=== PATIENT | female | born 1950 | race Caucasian/White ===

== ENCOUNTER 2022-03-27 05:39 | Inpatient (IN) | payer MEDICARE, SELFPAY ==
[2022-03-27] VITALS (11 sets, daily range): BP systolic 100–180; BP diastolic 51–100; PULSE 56–79; RESP 12–18; TEMP 33.7–37; O2SAT 89–98; BMI 40.3
--- NOTE | ~2022-03-27 | XR_ITS ---
EXAMINATION: XR CHEST CLINICAL INFORMATION: Chest pain COMPARISON: None TECHNIQUE: Frontal view of the chest was obtained. FINDINGS: Lungs are hypoinflated and suboptimally evaluated on this single AP view of the chest. Further evaluation with PA and lateral views could be helpful. Although there appears to be elevation the right diaphragm, this more likely represents a subpulmonic pleural effusion. The right lower lobe is not well evaluated on this radiograph. Cardiac silhouette is normal in size. The hilar contours are normal. The trachea is midline in position. The visualized bones are intact. Multilevel osteophyte formation of the spine. 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 XR/XR chest 1V IMPRESSION: Moderate subpulmonic right-sided pleural effusion. There is likely atelectasis, less likely airspace disease, in the suboptimally evaluated right lower lobe.
--- NOTE | ~2022-03-27 | CT_ITS ---
EXAMINATION: CT ANGIOGRAM OF THE CHEST WITH CONTRAST (CT PULMONARY ANGIOGRAM FOR PE) CLINICAL INFORMATION: Shortness of breath and weakness. COMPARISON: CXR from 03/27/2022. TECHNIQUE: Prior to contrast administration, noncontrast localization images were obtained. Subsequently, multidetector volumetric imaging was performed from the thoracic inlet to below the diaphragms following the administration of 65 mL Omnipaque 350 intravenous contrast. No contrast reaction reported. Sagittal, coronal, and MIP oblique sagittal reformatted images were obtained on the CT workstation, uploaded to PACS, and reviewed. This CT examination was performed using dose optimization techniques as appropriate, variously including the following: *Automated exposure control *Adjustment of mA and/or kV according to patient size (this includes techniques or standardized protocols for targeted exams where dose is matched to indication/reason for exam; i.e. extremities or head) *Use of iterative reconstruction technique DLP: Total exam dose-length product 474 mGy-cm FINDINGS: LUNGS AND PLEURA: The bronchial pierre and/or peribronchial interstitium are diffusely thickened, and lungs have mosaic attenuation, which suggests presence of air trapping phenomenon. There are ill-defined small airspace and/or small nodular opacities in both lungs which could be secondary to mild infectious or inflammatory process. A small, 0.2 cm calcified granuloma is present in the anterior left upper lobe (image 143, series 7). No lung mass. No suspicious nodule. Istykptm-iq-xvegg right pleural effusion layers from the base to the apex. The right lower lobe is partially compressed by the pleural effusion. There appears to be passive atelectasis in the right lower lobe. A small left pleural effusion is present. No pneumothorax. QUALITY OF STUDY/CONTRAST BOLUS: Satisfactory. CARDIOVASCULAR: Pulmonary arteries are normal in size. No embolic filling defects in the main, lobar or segmental vessels. There is mild cardiomegaly with mild enlargement of left and right atrial chambers. Mitral valve annulus is calcified. No pericardial effusion. Mild atherosclerosis of the thoracic aorta without aneurysm or dissection. MEDIASTINUM/LOWER NECK: No mediastinal mass. The esophagus and thyroid gland are unremarkable. LYMPHATICS: No pathologic sized axillary, hilar or mediastinal lymph nodes. UPPER ABDOMEN: There is reflux of contrast into the IVC and central hepatic veins which suggests presence of elevated right-sided cardiac pressures. OSSEOUS STRUCTURES: Multilevel discovertebral degenerative change of the visualized spine. No aggressive osseous lesions. CT/CT angio chest PE protocol IMPRESSION: * No evidence of pulmonary embolism. * Mild cardiomegaly, mosaic attenuation the lungs, peribronchial interstitial thickening and bilateral pleural effusions (right larger than left). These findings are consistent with fluid overload/congestive heart failure. The finding of contrast reflux into the IVC and hepatic veins suggests presence of elevated right-sided cardiac pressures. Difficult to exclude any superimposed infectious or inflammatory process in the lungs.
--- NOTE | ~2022-03-27 | CT_ITS ---
EXAMINATION: HEAD CT WITHOUT CONTRAST CERVICAL SPINE CT WITHOUT CONTRAST CLINICAL INFORMATION: Pain, status posttrauma COMPARISON: None. TECHNIQUE: Contiguous axial imaging of the head was performed without the administration of IV contrast. Axial multidetector volumetric images were also performed through the cervical spine without contrast. Multiplanar reconstructed images in coronal and sagittal orientations were submitted. DOSE: 1290 mGy-cm FINDINGS: HEAD: There is motion and streak artifact limiting evaluation of the inferior supratentorial region and the posterior fossa. Scattered areas of subcortical increased signal in the supratentorial region, suspected to be artifactual. Otherwise, there is no evidence of acute intracranial hemorrhage or territorial infarction. No abnormal mass-effect or midline shift. No extra-axial fluid collections. Walker to white matter differentiation is well preserved. The ventricles are normal in size and configuration. . No acute calvarial fracture. The sinuses and mastoid air cells are clear. CERVICAL SPINE: Craniocervical and atlantoaxial articulations are maintained. There is mild anterolisthesis of C3 on C4, C4 on C5. There is straightening of the cervical curvature. Vertebral body heights are maintained. No acute fractures seen. Cervical spondylosis present. This includes severe disc degeneration at C5-C6, C6-C7, C7-T1. This includes a prominent osteophytes arising from the posterior aspect of C5-C6, extending into the central canal with associated central canal stenosis. No significant prevertebral soft tissue swelling. No suspicious thyroid findings. No adenopathy is identified. There is a prominent effusion in the visualized right upper lung. Mild nonspecific groundglass opacities in bilateral upper lungs. CT/CT cervical spine wo con IMPRESSION: CT HEAD: Motion artifact, streak artifact and artifactual signal in the subcortical region of the brain, limiting evaluation, as described above. No acute intracranial hemorrhage is identified. Given the limitations of study, a follow-up CT for reassessment can be considered as clinically warranted. No evidence of edematous territorial infarction. CT cervical spine: 1.No acute fracture or malalignment in the cervical spine. 2. Severe cervical spondylosis. Prominent posterior osteophytes at C5-C6, causing central canal stenosis. 3. Prominent effusion in the visualized right upper lung.
--- NOTE | ~2022-03-27 | XR_ITS ---
EXAMINATION: XR CHEST CLINICAL INFORMATION: Follow-up right pleural effusion. COMPARISON: 03/27/2022 chest radiographs. TECHNIQUE: Frontal view of the chest was obtained. FINDINGS: Small to moderate right pleural effusion appears minimally increased. The right upper lung field and left lung are clear. The heart and mediastinal structures are unremarkable. XR/XR chest 1V IMPRESSION: Small to moderate pleural effusions appears minimally increased.
--- NOTE | 2022-03-27 06:10 | PC.NURSE ---
Bear warmer placed on Pt with rectal temp of 92.6.
[2022-03-27 06:14] LABS: Glucose, Whole Blood 94 mg/dL (60-115)
--- NOTE | 2022-03-27 06:17 | PC.NURSE ---
pt noted to have rectal temperature of 92.7, RN aware, luiz cohen placed. patient changed into hospital attire and placed on laboratory monitor
--- NOTE | 2022-03-27 06:28 | PC.NURSE ---
while changing patient into hospital attire, patient noted to be grossly incontinent of stool and urine, underwear cut off and thrown out at this time, ok per patient. incontinence care performed on patient. all safety maintained.
--- NOTE | 2022-03-27 07:22 | ECG_ITS ---
Test Reason : SEPSIS Blood Pressure : / mmHG Vent. Rate : 060 BPM Atrial Rate : 000 BPM P-R Int : 000 ms QRS Dur : 090 ms QT Int : 428 ms P-R-T Axes : 000 065 123 degrees QTc Int : 428 ms Sinus with first degree AV block and ?Mobitz 2 block (5th beat Septal infarct , age undetermined Abnormal ECG No previous ECGs available Referred By: Kaitlin Lynn Electronically Signed By:Douglas Vogt
[2022-03-27 07:43] LABS: MANUAL DIFF FLAG NO
--- NOTE | 2022-03-27 07:45 | ED.GENADULT ---
HPI - General Adult General Chief complaint: General Medical Stated complaint: fall Time Seen by Provider: 03/27/22 07:22 History of Present Illness HPI narrative: Patient is a 71-year-old female brought in by Fire Department patient lives alone. Fell in the bathroom hit her head. Question loss of consciousness. Patient did not call for help until 11 hours later. Friends reported patient has not been taking her medications. Patient canceled her doctor's appointment. EMS reported patient's house extremely cluttered. Patient complaining of diffuse aches. She is immunized for COVID she has a minimal cough. She denies any abdominal pain. No diarrhea. No nausea no vomiting. Positive generalized malaise. No focal weakness. Related Data Allergies Allergy/AdvReac Type Severity Reaction Status Date / Time Kayexalate Allergy Unknown Uncoded 02/08/19 00:00 Review of Systems Review of Systems: Positive generalized malaise. Yes all other systems are reviewed and are negative PMF Past Medical History Attestation statement: The following information was validated with the patient. Social History Social History Advance Directives: No Advance Directives Information Provided: Yes Physical Exam ED Vital Signs: Vital Signs - 24 hr 03/27/22 05:47 03/27/22 05:48 03/27/22 07:19 Temperature 92.7 F L 92.7 F L Pulse Rate 74 65 56 Respiratory Rate 15 18 12 Blood Pressure 154/56 H 154/56 H 126/51 L Pulse Oximetry 95 97 93 03/27/22 08:06 03/27/22 08:26 03/27/22 09:07 Temperature 94.3 F L 94.8 F L 95.5 F L Pulse Rate 61 61 61 Respiratory Rate 13 14 14 Blood Pressure 108/55 L 104/62 100/61 Pulse Oximetry 89 L 98 97 03/27/22 09:54 03/27/22 12:40 Temperature 96.1 F L 96.6 F L Pulse Rate 63 70 Respiratory Rate 14 14 Blood Pressure 116/61 Pulse Oximetry 97 93 BMI result Body Mass Index 40.3 Appearance: Alert. Oriented X3. No acute distress. Eyes: Pupils equal, round and reactive to light. ENT: Pharynx normal. Mucous membranes dry Neck: Normal inspection. Neck supple. No lymph nodes noted. No crepitus CVS: Normal heart rate and rhythm. Pulses normal. Normal S1 and S2 Respiratory: No respiratory distress. Breath sounds normal. No Wheezing. No rales Abdomen: Soft and nontender. No rigidity. No distention. good BS x4 Skin: Bilateral lower extremity edema 2+. Not warm to touch slightly red blanches distal pulses intact. Extremities: Positive bilateral lower extremity edema. Neurovascular intact to all extremities. No Lacerations. Positive redness noted in the bilateral lower extremity not warm to touch., blanches Neuro: Oriented X 3. No motor deficit. No sensory deficit. Moving all extermities. No slurred speech Medical Decision Making MDM Narrative Medical decision making narrative: Positive generalized malaise positive decrease in temperature question etiology. Patient initial temperature was [address] scan of the head was negative CT scan of the C-spine showed no acute fracture. Patient's TSH was normal. White count is normal. Electrolytes were unremarkable. The CPK was negative for acute evidence of rhabdo. Patient's urine showed no signs of infection. COVID swab was negative flu RSV were negative. Patient given warm fluids [facility] temperature came up nicely to 97 degrees. Chest x-ray showed a questionable infiltrate. Patient's O2 sats 90%. A CTA was done to rule out the possibility of PE/pneumonia. Most likely it is an infiltrate there patient was already on antibiotic. Patient was started on Rocephin initially. Will add azithromycin. Awaiting final reading from the CTA. Patient's case discussed with the hospitalist team nevertheless patient will require admission for further evaluation treatment for pneumonia. No evidence for severe sepsis patient is in stable condition. Lab Data Result diagrams: 03/27/22 07:39 03/27/22 07:38 Labs: Lab Results 03/27/22 03/27/22 03/27/22 Range/Units 06:10 07:23 07:38 WBC (4.8-10.8) X10*3/uL RBC (4.20-5.50) X10*6/uL Hgb (12.0-16.0) g/dl Hct (37.0-47.0) % MCV (80.0-98.0) fL MCH (27.0-33.0) pg MCHC (31.0-35.0) g/dl RDW (11.0-16.0) % Plt Count (160-400) X10*3/uL MPV (9.4-12.3) fL Immature Gran % (Auto) (0.0-0.4) % Neut % (Auto) (45-73) % Lymph % (Auto) (20-40) % [place] % (Auto) (2-11) % Eos % (Auto) (0-4) % Baso % (Auto) (0-2) % Lymph # (Auto) (1.2-4.9) X10*3/uL [place] # (Auto) (0.1-1.2) X10*3/uL Eos # (Auto) (0.0-0.4) X10*3/uL Baso # (Auto) (0.0-0.2) X10*3/uL Abs Immat Gran (auto) (0.00-0.03) X10*3/uL Absolute Neuts (auto) (2.0-8.3) x10*3/uL Absolute Nucleated RBC (0.0-0.012) X10*3/uL Nucleated RBC % (auto) (0.0-0.2) /100WBC Sodium 143 (135-145) mmol/L Potassium 3.6 (3.3-5.1) mmol/L Chloride 107 (96-108) mmol/L Carbon Dioxide 22 (22-29) mmol/L Anion Gap 18 (12-20) BUN 20 H (9-16) mg/dL Creatinine 0.98 (0.5-1.4) mg/dL Estim Creat Clear Calc 69.7 Estimated GFR 56 POC Glucose 94 (60-115) mg/dL Random Glucose 116 H (60-115) mg/dL Lactic Acid (0.5-2.0) mmol/L Calcium 9.6 (8.4-10.2) mg/dL Magnesium 2.0 (1.6-2.6) mg/dL Total Bilirubin 2.3 H (0.0-1.0) mg/dL Direct Bilirubin 1.5 H (0.0-0.5) mg/dL AST 21 (5-31) U/L ALT 13 (0-31) U/L Alkaline Phosphatase 107 (39-117) U/L Total Creatine Kinase 121 (26-140) U/L Troponin I High Sens 8.4 (<3.5-17.0) ng/L Total Protein 6.0 L (6.5-8.0) g/dL Albumin 3.3 L (3.5-5.0) g/dL TSH 2.68 (0.32-4.0) uIU/mL Urine Color Urine Appearance Urine pH (5.0-8.0) Ur Specific [place] (1.005-1.025) Urine Protein (NEG-TRACE) MG/DL Urine Glucose (UA) (NEG) MG/DL Urine Ketones (NEG) MG/DL Urine Blood (NEG) Urine Nitrite (NEG) Ur Leukocyte Esterase (NEG) Urine RBC (0) /HPF Urine WBC (0-4) /HPF Ur Squamous Epith Cells /LPF Urine Bacteria /LPF Hyaline Casts /LPF Granular Casts /LPF Influenza Type A (PCR) (Negative) Influenza Type B (PCR) (Negative) RSV RNA Qual (PCR) (Negative) SARS-CoV-2 RNA (RT-PCR) (Negative) 03/27/22 03/27/22 03/27/22 Range/Units 07:38 07:38 07:39 WBC 5.7 (4.8-10.8) X10*3/uL RBC 4.32 (4.20-5.50) X10*6/uL Hgb 12.0 (12.0-16.0) g/dl Hct 38.6 (37.0-47.0) % MCV 89.4 (80.0-98.0) fL MCH 27.8 (27.0-33.0) pg MCHC 31.1 (31.0-35.0) g/dl RDW 18.0 H (11.0-16.0) % Plt Count 196 (160-400) X10*3/uL MPV 9.7 (9.4-12.3) fL Immature Gran % (Auto) 0.4 (0.0-0.4) % Neut % (Auto) 77.9 H (45-73) % Lymph % (Auto) 10.4 L (20-40) % [place] % (Auto) 9.7 (2-11) % Eos % (Auto) 1.2 (0-4) % Baso % (Auto) 0.4 (0-2) % Lymph # (Auto) 0.6 L (1.2-4.9) X10*3/uL [place] # (Auto) 0.6 (0.1-1.2) X10*3/uL Eos # (Auto) 0.1 (0.0-0.4) X10*3/uL Baso # (Auto) 0.0 (0.0-0.2) X10*3/uL Abs Immat Gran (auto) 0.02 (0.00-0.03) X10*3/uL Absolute Neuts (auto) 4.4 (2.0-8.3) x10*3/uL Absolute Nucleated RBC 0.000 (0.0-0.012) X10*3/uL Nucleated RBC % (auto) 0.0 (0.0-0.2) /100WBC Sodium (135-145) mmol/L Potassium (3.3-5.1) mmol/L Chloride (96-108) mmol/L Carbon Dioxide (22-29) mmol/L Anion Gap (12-20) BUN (9-16) mg/dL Creatinine (0.5-1.4) mg/dL Estim Creat Clear Calc Estimated GFR POC Glucose (60-115) mg/dL Random Glucose (60-115) mg/dL Lactic Acid 1.4 (0.5-2.0) mmol/L Calcium (8.4-10.2) mg/dL Magnesium (1.6-2.6) mg/dL Total Bilirubin (0.0-1.0) mg/dL Direct Bilirubin (0.0-0.5) mg/dL AST (5-31) U/L ALT (0-31) U/L Alkaline Phosphatase (39-117) U/L Total Creatine Kinase (26-140) U/L Troponin I High Sens (<3.5-17.0) ng/L Total Protein (6.5-8.0) g/dL Albumin (3.5-5.0) g/dL TSH (0.32-4.0) uIU/mL Urine Color Urine Appearance Urine pH (5.0-8.0) Ur Specific [place] (1.005-1.025) Urine Protein (NEG-TRACE) MG/DL Urine Glucose (UA) (NEG) MG/DL Urine Ketones (NEG) MG/DL Urine Blood (NEG) Urine Nitrite (NEG) Ur Leukocyte Esterase (NEG) Urine RBC (0) /HPF Urine WBC (0-4) /HPF Ur Squamous Epith Cells /LPF Urine Bacteria /LPF Hyaline Casts /LPF Granular Casts /LPF Influenza Type A (PCR) NEGATIVE (Negative) Influenza Type B (PCR) NEGATIVE (Negative) RSV RNA Qual (PCR) NEGATIVE (Negative) SARS-CoV-2 RNA (RT-PCR) NEGATIVE (Negative) 03/27/22 Range/Units 07:49 WBC (4.8-10.8) X10*3/uL RBC (4.20-5.50) X10*6/uL Hgb (12.0-16.0) g/dl Hct (37.0-47.0) % MCV (80.0-98.0) fL MCH (27.0-33.0) pg MCHC (31.0-35.0) g/dl RDW (11.0-16.0) % Plt Count (160-400) X10*3/uL MPV (9.4-12.3) fL Immature Gran % (Auto) (0.0-0.4) % Neut % (Auto) (45-73) % Lymph % (Auto) (20-40) % [place] % (Auto) (2-11) % Eos % (Auto) (0-4) % Baso % (Auto) (0-2) % Lymph # (Auto) (1.2-4.9) X10*3/uL [place] # (Auto) (0.1-1.2) X10*3/uL Eos # (Auto) (0.0-0.4) X10*3/uL Baso # (Auto) (0.0-0.2) X10*3/uL Abs Immat Gran (auto) (0.00-0.03) X10*3/uL Absolute Neuts (auto) (2.0-8.3) x10*3/uL Absolute Nucleated RBC (0.0-0.012) X10*3/uL Nucleated RBC % (auto) (0.0-0.2) /100WBC Sodium (135-145) mmol/L Potassium (3.3-5.1) mmol/L Chloride (96-108) mmol/L Carbon Dioxide (22-29) mmol/L Anion Gap (12-20) BUN (9-16) mg/dL Creatinine (0.5-1.4) mg/dL Estim Creat Clear Calc Estimated GFR POC Glucose (60-115) mg/dL Random Glucose (60-115) mg/dL Lactic Acid (0.5-2.0) mmol/L Calcium (8.4-10.2) mg/dL Magnesium (1.6-2.6) mg/dL Total Bilirubin (0.0-1.0) mg/dL Direct Bilirubin (0.0-0.5) mg/dL AST (5-31) U/L ALT (0-31) U/L Alkaline Phosphatase (39-117) U/L Total Creatine Kinase (26-140) U/L Troponin I High Sens (<3.5-17.0) ng/L Total Protein (6.5-8.0) g/dL Albumin (3.5-5.0) g/dL TSH (0.32-4.0) uIU/mL Urine Color YELLOW Urine Appearance CLEAR Urine pH 5.5 (5.0-8.0) Ur Specific [place] >= 1.030 H (1.005-1.025) Urine Protein 1+ H (NEG-TRACE) MG/DL Urine Glucose (UA) NEG (NEG) MG/DL Urine Ketones 15 (NEG) MG/DL Urine Blood NEG (NEG) Urine Nitrite NEG (NEG) Ur Leukocyte Esterase NEG (NEG) Urine RBC 0 (0) /HPF Urine WBC 0 (0-4) /HPF Ur Squamous Epith Cells 1+ /LPF Urine Bacteria NONE /LPF Hyaline Casts 5-9 /LPF Granular Casts 0-2 /LPF Influenza Type A (PCR) (Negative) Influenza Type B (PCR) (Negative) RSV RNA Qual (PCR) (Negative) SARS-CoV-2 RNA (RT-PCR) (Negative) Critical Care Time Critical Care Time Critical Care Time: Yes Total Critical Care Time: 40 Attestation: I have personally provided 40 minutes of critical care time exclusive of time spent on separately billable procedures. Time includes review of lab data, radiology results, discussion with consultants, and monitoring for potential decompensation. Interventions were performed as documented above Discharge Plan Discharge Clinical Impression: Pneumonia Patient Disposition: Admitted As Inpatient
[2022-03-27 07:54] LABS: Basophils Percent Auto 0.4 % (0-2); Eosinophils Absolute Auto 0.1 X10*3/uL (0.0-0.4); Eosinophils Percent Auto 1.2 % (0-4); Hematocrit 38.6 % (37.0-47.0); Imm Gran Abs Auto 0.02 X10*3/uL (0.00-0.03); Imm Gran Pct Auto 0.4 % (0.0-0.4); Lymphocytes Absolute Auto 0.6 X10*3/uL (1.2-4.9); Lymphocytes Percent Auto 10.4 % (20-40); Mean Corpuscular HGB Conc 31.1 g/dl (31.0-35.0); Mean Corpuscular Hemoglobin 27.8 pg (27.0-33.0); Mean Corpuscular Volume 89.4 fL (80.0-98.0); Mean Platelet Volume 9.7 fL (9.4-12.3); Monocytes Absolute Auto 0.6 X10*3/uL (0.1-1.2); Monocytes Percent Auto 9.7 % (2-11); Neutrophils Absolute Auto 4.4 x10*3/uL (2.0-8.3); Neutrophils Percent Auto 77.9 % (45-73); Platelet Count 196 X10*3/uL (160-400); Red Blood Count 4.32 X10*6/uL (4.20-5.50); White Blood Count 5.7 X10*3/uL (4.8-10.8)
[2022-03-27 07:57] LABS: Lactic Acid 1.4 mmol/L (0.5-2.0)
[2022-03-27 07:58] LABS: Appearance Urine CLEAR; Color Urine YELLOW; Glucose Urine UA NEG (NEG); Leukocyte Esterase Urine NEG (NEG); Nitrite Urine NEG (NEG); PH 5.5 (5.0-8.0); Specific Gravity - Urine >= 1.030 (1.005-1.025); UACC Culture Trigger NO; Urine Blood NEG (NEG); Urine Ketones 15 MG/DL (NEG); Urine Protein 1+ MG/DL (NEG-TRACE)
[2022-03-27] MEDS: 0.9 % Sodium Chloride 1,000 ML 999 ML IV (08:02)
--- NOTE | 2022-03-27 08:04 | PC.NURSE ---
pt on bear hugger, warm fluids infusing. placed temp sensing chinchilla cath. VSS at this time aside from temp at 94.3
[2022-03-27 08:09] LABS: Alanine Aminotransferase 13 U/L (0-31); Albumin Level 3.3 g/dL (3.5-5.0); Alkaline Phosphatase 107 U/L (39-117); Anion Gap 18 (12-20); Aspartate Amino Transferase 21 U/L (5-31); Bilirubin Direct 1.5 mg/dL (0.0-0.5); Bilirubin Total 2.3 mg/dL (0.0-1.0); Blood Urea Nitrogen 20 mg/dL (9-16); Calcium 9.6 mg/dL (8.4-10.2); Carbon Dioxide 22 mmol/L (22-29); Chloride 107 mmol/L (96-108); Creatinine Clr Calc Pharmacy 69.7; Estimated Glomerular Filt Rate 56; Glucose Random 116 mg/dL (60-115); Potassium 3.6 mmol/L (3.3-5.1); Sodium 143 mmol/L (135-145)
[2022-03-27 08:11] LABS: RBC Urine 0 /HPF (0); Squamous Epithelial Cell Urine 1+ /LPF; WBC Urine 0 /HPF (0-4)
[2022-03-27 08:12] LABS: Granular Casts Urine 0-2 /LPF
[2022-03-27] MEDS: cefTRIAXone sodium 1 GM in 0.9 % Sodium Chloride 50 ML IV (08:17)
--- NOTE | 2022-03-27 08:17 | PC.NURSE ---
pt SaO2 89% on room air, started pt on 2L NC pt SaO2 up to 98%
[2022-03-27] MEDS: dexAMETHasone sod phosphate 10 MG/ML VIAL IVPUSH (08:18)
[2022-03-27 08:26] LABS: Troponin-I High Sensitivity 8.4 ng/L (<3.5-17.0)
[2022-03-27 08:27] LABS: Influenza A PCR NEGATIVE (Negative); Influenza B PCR NEGATIVE (Negative); Resp Syncy Virus RNA Qual PCR NEGATIVE (Negative); SARS COV2 PCR INHOUSE NEGATIVE (Negative)
[2022-03-27 08:29] LABS: TSH reflex Free T4 2.68 uIU/mL (0.32-4.0)
--- NOTE | 2022-03-27 11:26 | PC.NURSE ---
Addendum entered by More Mccallum RN 03/27/22 11:45: per protective services, pt is not to go home as it is unsafe living conditions. request to keep pt in the hospital until tuesday and work with case management to figure out plan Original Note: [facility] services involved
--- NOTE | 2022-03-27 11:44 | PC.NURSE ---
got pt up to ambulate. pt is slow to change positions, reports weakness and dizziness. pt able to stand at bedside with 2x assist. very unstable. not able to ambulate. notified.
[2022-03-27] MEDS: iohexoL 350 MG/ML 100 ML INFUS..BTL 65 ML IV (12:06)
[2022-03-27] MEDS: Azithromycin 500 MG TABLET PO (12:46)
[2022-03-27 13:53] LABS: Glucose, Whole Blood 105 mg/dL (60-115)
--- NOTE | 2022-03-27 14:09 | PHA.MEDREC ---
Pharmacy Consult ? Medication Reconciliation Pharmacy has completed the medication reconciliation. Patient has a older medication list from last year that is not up to date. Per patient, she has not taken her medication for atleast 3 days, and before that, she had sporadic adherence meaning she was only taking medications once a day. She lost prescription coverage one month ago. Per her refill history, she demonstrates adherence to all medications but the glipizide and zocor. Thanks Zachary
--- NOTE | 2022-03-27 15:36 | PM.EVENT ---
Event Note Date of Service: 03/27/22 Event Note: Patient seen and evaluated. CTA reviewed with no evidence of pulmonary embolism but signs of heart failure. Possible pneumonia. Next Lyme continue treatment with IV antibiotics and Lasix.
--- NOTE | 2022-03-27 15:44 | PM.IMHP ---
History of Present Illness Date of Service: 03/27/22 Chief Complaint: Fall, confused A 71 years old lady with PMH of atrial fibrillation, diabetes, HTN who presents to the hospital after unwitnessed fall at home. The patient cannot remember all the details but she felt dizzy and fell on the floor try to call multiple friends but she felt and they felt that she was little bit of and confused. EMS was called and they brought her to the hospital. She reports that for the last few days she has been feeling sick and not eating very well but the eating problem goes back to earlier this year. She denies any abdominal pain, chest pain, nausea or vomiting or change in bowel habit. She denies any urinary symptoms. In the emergency a CT scan was consistent with fluid overload and possible pneumonia. Admitted for further evaluation and treatment. Review of Systems Review of Systems: No fever, chills but reporting generalized weakness No chest pain, palpitation Having shortness of breath and episodes of cough No abdominal pain, nausea or vomiting No urinary symptoms No any rash or wounds Feels her mind is little bit off [facility] Medical History Atrial fibrillation Diabetes mellitus Social History Advance Directives: No Advance Directives Information Provided: Yes Meds Allergies Allergy/AdvReac Type Severity Reaction Status Date / Time Kayexalate Allergy Unknown Uncoded 02/08/19 00:00 Active Medications: Current Medications Acetaminophen (Acetaminophen 325 Mg Tablet) 650 mg PO Q6H PRN PRN Reason: Pain, Mild (Pain Scale 1-3) Apixaban (Apixaban 5 Mg Tablet) 5 mg PO BID [facility] Benzonatate (Benzonatate 100 Mg Capsule) 100 mg PO TID PRN PRN Reason: Cough Fluoxetine HCl (Fluoxetine Hcl 20 Mg Capsule) 40 mg PO DAILY MARIANN Furosemide (Furosemide 20 Mg/2 Ml Vial) 20 mg IVPUSH DAILY [facility]; Protocol Azithromycin 500 mg/ Sodium (Chloride) 250 mls @ 125 mls/hr IV Q24H MARIANN Ceftriaxone Sodium 1 gm/ (Sodium Chloride) 50 mls @ 100 mls/hr IV Q24H [facility] Insulin Human Lispro (Insulin Lispro 100 Unit/Ml 3 Ml Vial) 0 unit SUBCUT QIDACHS [facility]; Protocol Levothyroxine Sodium (Levothyroxine Sodium 50 Mcg Tablet) 50 mcg PO DAILY [facility] Losartan Potassium (Losartan Potassium 50 Mg Tablet) 50 mg PO DAILY [facility]; Protocol Metoprolol Succinate (Metoprolol Succinate Er 50 Mg Tab.Er.24h) 50 mg PO DAILY [facility]; Protocol Ondansetron HCl (Ondansetron Hcl 4 Mg/2 Ml Vial) 4 mg IVPUSH Q8H PRN PRN Reason: Nausea and Vomiting Pharmacy Consult (Consult Rx Perform Med Rec) 1 each MISCELLANE ONCE PRN PRN Reason: Consult order Sodium Chloride (0.9 % Sodium Chloride Flush 3 Ml Syringe) 3 [facility] Home Medications Medication Instructions Recorded Confirmed Last Taken Type apixaban 5 mg tablet (Eliquis) 1 tab PO BID 03/27/22 03/27/22 Unknown History fluoxetine 40 mg capsule 1 cap PO DAILY 03/27/22 03/27/22 Unknown History glipizide 5 mg tablet 1 tab PO BID 03/27/22 03/27/22 Unknown History levothyroxine 50 mcg tablet 1 tab PO DAILY 03/27/22 03/27/22 Unknown History losartan 100 mg tablet 1 tab PO DAILY 03/27/22 03/27/22 Unknown History meloxicam 15 mg tablet 1 tab PO DAILY PRN 03/27/22 03/27/22 Unknown History metoprolol succinate 50 mg 50 mg PO DAILY 03/27/22 03/27/22 Unknown History tablet,extended release 24 hr simvastatin 20 mg tablet 1 tab PO BEDTIME 03/27/22 03/27/22 Unknown History Physical Exam Vital Signs and Narrative: Vital Signs: Last Vital Signs Temp 96.6 F L 03/27/22 12:40 Pulse 70 03/27/22 14:45 Resp 14 03/27/22 12:40 BP 116/61 03/27/22 09:54 Pulse Ox 93 03/27/22 14:45 Oxygen Flow Rate 4 03/27/22 05:47 BMI result Body Mass Index 40.3 Const: Other: Constitutional : Alert, interactive, slow in responses but not in distress Neck : Normal inspection, Supple Cardiovascular : RRR, no JVP, trace bilateral lower extremity edema Respiratory : Decreased air entry over the right lower area, fine crackles, wheezes or rhonchi Gastrointestinal: soft, lax, Normal bowel sounds, Non tender Skin : Warm, Dry, bilateral skin changes suggestive of stasis dermatitis Neurological : Alert & oriented x3, No focal deficit , CN 2-12 within normal Results Labs CBC and Chem 7: 03/27/22 07:39 03/27/22 07:38 Labs: Laboratory Results - last 24 hr 03/27/22 03/27/22 03/27/22 06:10 07:23 07:38 MCV MCH MCHC RDW Plt Count MPV Immature Gran % (Auto) Neut % (Auto) Lymph % (Auto) [place] % (Auto) Eos % (Auto) Baso % (Auto) Lymph # (Auto) [place] # (Auto) Eos # (Auto) Baso # (Auto) Abs Immat Gran (auto) Absolute Neuts (auto) Absolute Nucleated RBC Nucleated RBC % (auto) Anion Gap 18 Estim Creat Clear Calc 69.7 Estimated GFR 56 POC Glucose 94 Random Glucose 116 H Lactic Acid Calcium 9.6 Magnesium 2.0 Total Bilirubin 2.3 H Direct Bilirubin 1.5 H AST 21 ALT 13 Alkaline Phosphatase 107 Total Creatine Kinase 121 Troponin I High Sens 8.4 Total Protein 6.0 L Albumin 3.3 L TSH 2.68 Urine Color Urine Appearance Urine pH Ur Specific [place] Urine Protein Urine Glucose (UA) Urine Ketones Urine Blood Urine Nitrite Ur Leukocyte Esterase Urine RBC Urine WBC Ur Squamous Epith Cells Urine Bacteria Hyaline Casts Granular Casts Influenza Type A (PCR) Influenza Type B (PCR) RSV RNA Qual (PCR) SARS-CoV-2 RNA (RT-PCR) 03/27/22 03/27/22 03/27/22 07:38 07:38 07:39 MCV 89.4 MCH 27.8 MCHC 31.1 RDW 18.0 H Plt Count 196 MPV 9.7 Immature Gran % (Auto) 0.4 Neut % (Auto) 77.9 H Lymph % (Auto) 10.4 L [place] % (Auto) 9.7 Eos % (Auto) 1.2 Baso % (Auto) 0.4 Lymph # (Auto) 0.6 L [place] # (Auto) 0.6 Eos # (Auto) 0.1 Baso # (Auto) 0.0 Abs Immat Gran (auto) 0.02 Absolute Neuts (auto) 4.4 Absolute Nucleated RBC 0.000 Nucleated RBC % (auto) 0.0 Anion Gap Estim Creat Clear Calc Estimated GFR POC Glucose Random Glucose Lactic Acid 1.4 Calcium Magnesium Total Bilirubin Direct Bilirubin AST ALT Alkaline Phosphatase Total Creatine Kinase Troponin I High Sens Total Protein Albumin TSH Urine Color Urine Appearance Urine pH Ur Specific [place] Urine Protein Urine Glucose (UA) Urine Ketones Urine Blood Urine Nitrite Ur Leukocyte Esterase Urine RBC Urine WBC Ur Squamous Epith Cells Urine Bacteria Hyaline Casts Granular Casts Influenza Type A (PCR) NEGATIVE Influenza Type B (PCR) NEGATIVE RSV RNA Qual (PCR) NEGATIVE SARS-CoV-2 RNA (RT-PCR) NEGATIVE 03/27/22 03/27/22 07:49 13:46 MCV MCH MCHC RDW Plt Count MPV Immature Gran % (Auto) Neut % (Auto) Lymph % (Auto) [place] % (Auto) Eos % (Auto) Baso % (Auto) Lymph # (Auto) [place] # (Auto) Eos # (Auto) Baso # (Auto) Abs Immat Gran (auto) Absolute Neuts (auto) Absolute Nucleated RBC Nucleated RBC % (auto) Anion Gap Estim Creat Clear Calc Estimated GFR POC Glucose 105 Random Glucose Lactic Acid Calcium Magnesium Total Bilirubin Direct Bilirubin AST ALT Alkaline Phosphatase Total Creatine Kinase Troponin I High Sens Total Protein Albumin TSH Urine Color YELLOW Urine Appearance CLEAR Urine pH 5.5 Ur Specific [place] >= 1.030 H Urine Protein 1+ H Urine Glucose (UA) NEG Urine Ketones 15 Urine Blood NEG Urine Nitrite NEG Ur Leukocyte Esterase NEG Urine RBC 0 Urine WBC 0 Ur Squamous Epith Cells 1+ Urine Bacteria NONE Hyaline Casts 5-9 Granular Casts 0-2 Influenza Type A (PCR) Influenza Type B (PCR) RSV RNA Qual (PCR) SARS-CoV-2 RNA (RT-PCR) Imaging Radiologist's Impressions: Impressions Chest X-Ray 03/27/22 09:04 IMPRESSION: Moderate subpulmonic right-sided pleural effusion. There is likely atelectasis, less likely airspace disease, in the suboptimally evaluated right lower lobe. Cervical Spine CT 03/27/22 09:20 IMPRESSION: CT HEAD: Motion artifact, streak artifact and artifactual signal in the subcortical region of the brain, limiting evaluation, as described above. No acute intracranial hemorrhage is identified. Given the limitations of study, a follow-up CT for reassessment can be considered as clinically warranted. No evidence of edematous territorial infarction. CT cervical spine: 1.No acute fracture or malalignment in the cervical spine. 2. Severe cervical spondylosis. Prominent posterior osteophytes at C5-C6, causing central canal stenosis. 3. Prominent effusion in the visualized right upper lung. Head CT 03/27/22 09:20 IMPRESSION: CT HEAD: Motion artifact, streak artifact and artifactual signal in the subcortical region of the brain, limiting evaluation, as described above. No acute intracranial hemorrhage is identified. Given the limitations of study, a follow-up CT for reassessment can be considered as clinically warranted. No evidence of edematous territorial infarction. CT cervical spine: 1.No acute fracture or malalignment in the cervical spine. 2. Severe cervical spondylosis. Prominent posterior osteophytes at C5-C6, causing central canal stenosis. 3. Prominent effusion in the visualized right upper lung. Chest CTA 03/27/22 12:07 IMPRESSION: * No evidence of pulmonary embolism. * Mild cardiomegaly, mosaic attenuation the lungs, peribronchial interstitial thickening and bilateral pleural effusions (right larger than left). These findings are consistent with fluid overload/congestive heart failure. The finding of contrast reflux into the IVC and hepatic veins suggests presence of elevated right-sided cardiac pressures. Difficult to exclude any superimposed infectious or inflammatory process in the lungs. Assessment and Plan (1) Diabetes mellitus: Status: Acute (2) Atrial fibrillation: Status: Acute (3) Pneumonia: Status: Acute (4) Pleural effusion: Status: Acute Plan A 71 years old lady with PMH of atrial fibrillation, diabetes, HTN who presents to the hospital after unwitnessed fall at home. Fall Secondary to physical deconditioning and likely pneumonia CT head and neck negative for any acute injury to do physical therapy Pneumonia Likely secondary to fluid overload Cover with IV antibiotics of azithromycin and ceftriaxone next Lyme pending blood cultures Pleural effusion Evidence of right pleural effusion on CT scan To do thoracentesis by Tuesday to rule out any malignant cause Will need an echo AFib Rate controlled, continue home medications Type 2 diabetes SSI next Lyme diabetic diet DVT PPX Eliquis The patient will need to overnight hospital stay for evaluation and treatment of pleural effusion, pneumonia and set her for safe placement plan. Quality Stroke Does the patient have a stroke diagnosis?: No VTE Prior VTE?: No VTE Risk Level:: Medical - moderate - high VTE Device Contraindication: Treatment Not Indicated VTE Drug Contraindication: N/A - Med Ordered
[2022-03-27] MEDS: Metoprolol Succinate ER 50 MG TAB.ER.24H PO (16:16)
[2022-03-27] MEDS: Furosemide 20 MG/2 ML VIAL IVPUSH (16:16)
[2022-03-27] MEDS: 0.9 % Sodium Chloride Flush 3 ML SYRINGE IVFLUSH ×2 (16:17→20:37)
--- NOTE | 2022-03-27 16:21 | PC.NURSE ---
pts friend and coworker, Tiffanie called to update t/w, reports Tiffanie is who the pt called when she fell this morning. Tiffanie reported to t/w that the pt was hallucinating when she got there, stating there were people in her basement and people trying to steal her things. no evidence of pt hallucinating since being in the hospital.
[2022-03-27] MEDS: Apixaban 5 MG TABLET PO (20:37)
[2022-03-27 21:57] LABS: Glucose, Whole Blood 135 mg/dL (60-115)
[2022-03-28 04:00] VITALS: BP 135/63; PULSE 62; RESP 20; TEMP 37.1; O2SAT 96
[2022-03-28] MEDS: Levothyroxine Sodium 50 MCG TABLET PO (05:35)
[2022-03-28 06:58] LABS: B Type Natriuretic Peptide 887 pg/mL (<100)
[2022-03-28 07:00] LABS: Hematocrit 37.7 % (37.0-47.0); Hemoglobin 11.7 g/dl (12.0-16.0); Mean Corpuscular Hemoglobin 27.9 pg (27.0-33.0); Mean Corpuscular Volume 89.8 fL (80.0-98.0); Mean Platelet Volume 10.3 fL (9.4-12.3); Platelet Count 210 X10*3/uL (160-400); Red Cell Distribution Width 18.3 % (11.0-16.0); White Blood Count 6.3 X10*3/uL (4.8-10.8)
[2022-03-28 07:05] LABS: Anion Gap 17 (12-20); Blood Urea Nitrogen 20 mg/dL (9-16); Calcium 9.6 mg/dL (8.4-10.2); Carbon Dioxide 24 mmol/L (22-29); Chloride 106 mmol/L (96-108); Estimated Glomerular Filt Rate 44; Glucose Random 121 mg/dL (60-115); Potassium 4.2 mmol/L (3.3-5.1); Sodium 143 mmol/L (135-145)
[2022-03-28 07:27] LABS: Glucose, Whole Blood 98 mg/dL (60-115)
[2022-03-28 07:35] VITALS: BP 131/84; PULSE 57; TEMP 36.4; O2SAT 98
[2022-03-28] MEDS: 0.9 % Sodium Chloride Flush 3 ML SYRINGE IVFLUSH ×3 (08:19→20:07)
[2022-03-28] MEDS: Metoprolol Succinate ER 50 MG TAB.ER.24H PO (08:20)
[2022-03-28] MEDS: cefTRIAXone sodium 1 GM in 0.9 % Sodium Chloride 50 ML IV (08:20)
[2022-03-28] MEDS: Apixaban 5 MG TABLET PO ×2 (08:20→20:01)
[2022-03-28] MEDS: Losartan Potassium 50 MG TABLET PO (08:20)
[2022-03-28] MEDS: FLUoxetine HCl 20 MG CAPSULE 40 MG PO (08:21)
[2022-03-28] MEDS: Furosemide 20 MG/2 ML VIAL IVPUSH (08:21)
[2022-03-28 09:10] LABS: Free T4 (Free Thyroxine) 0.94 ng/dL (0.71-1.85)
[2022-03-28] MEDS: Ammonium Lactate 12 % Lotion 226 GM BOTTLE 1 APPL TOPICAL ×2 (11:01→20:05)
[2022-03-28 11:08] LABS: Glucose, Whole Blood 105 mg/dL (60-115)
[2022-03-28] MEDS: Azithromycin 500 MG in 0.9 % Sodium Chloride 250 ML 125 MG IV (11:56)
[2022-03-28 12:00] VITALS: BP 108/58; PULSE 60; RESP 20; TEMP 36.3; O2SAT 94
--- NOTE | 2022-03-28 13:56 | HO.PM.IMPN ---
Subjective Subjective Date of Service: 03/28/22 Interval History: seen and evaluated feels mild improvement of her breathing and weakness tempretures stabilized normal Review of Systems No fever, chills but reporting generalized weakness No chest pain, palpitation Having shortness of breath and episodes of cough No abdominal pain, nausea or vomiting No urinary symptoms No any rash or wounds Feels her mind is little bit off Physical Exam Vital Signs: Vital Signs: Last Vital Signs Temp 97.4 F 03/28/22 12:00 Pulse 60 03/28/22 12:00 Resp 20 03/28/22 12:00 BP 108/58 L 03/28/22 12:00 Pulse Ox 94 03/28/22 12:00 Oxygen Flow Rate 4 03/27/22 05:47 BMI result Body Mass Index 40.3 Const: Other: Constitutional : Alert, interactive, slow in responses but not in distress Neck : Normal inspection, Supple Cardiovascular : RRR, no JVP, trace bilateral lower extremity edema Respiratory : Decreased air entry over the right lower area, fine crackles, wheezes or rhonchi Gastrointestinal: soft, lax, Normal bowel sounds, Non tender Skin : Warm, Dry, bilateral skin changes suggestive of stasis dermatitis Neurological : Alert & oriented x3, No focal deficit , CN 2-12 within normal Objective Data Active Medications Acetaminophen (Acetaminophen 325 Mg Tablet) 650 mg PO Q6H PRN PRN Reason: Pain, Mild (Pain Scale 1-3) Apixaban (Apixaban 5 Mg Tablet) 5 mg PO BID [facility] Last Admin: 03/28/22 08:20 Dose: 5 mg Documented by: BERTHA Benzonatate (Benzonatate 100 Mg Capsule) 100 mg PO TID PRN PRN Reason: Cough Fluoxetine HCl (Fluoxetine Hcl 20 Mg Capsule) 40 mg PO DAILY [facility] Last Admin: 03/28/22 08:21 Dose: 40 mg Documented by: BERTHA Furosemide (Furosemide 20 Mg/2 Ml Vial) 20 mg IVPUSH DAILY [facility]; Protocol Last Admin: 03/28/22 08:21 Dose: 20 mg Documented by: BERTHA Azithromycin 500 mg/ Sodium (Chloride) 250 mls @ 125 mls/hr IV Q24H [facility] Last Admin: 03/28/22 11:56 Dose: 125 mls/hr Documented by: BERTHA Ceftriaxone Sodium 1 gm/ (Sodium Chloride) 50 mls @ 100 mls/hr IV Q24H [facility] Last Infusion: 03/28/22 10:57 Dose: 0 mls/hr Documented by: BERTHA Insulin Human Lispro (Insulin Lispro 100 Unit/Ml 3 Ml Vial) 0 unit SUBCUT QIDACHS [facility]; Protocol Last Admin: 03/28/22 11:11 Dose: Not Given Documented by: BERTHA Non-Admin Reason: No Insulin Coverage Lactic Acid (Ammonium Lactate 12 % Lotion 226 Gm Bottle) 1 appl TOPICAL BID [facility]; Protocol Last Admin: 03/28/22 11:01 Dose: 1 appl Documented by: BERTHA Levothyroxine Sodium (Levothyroxine Sodium 50 Mcg Tablet) 50 mcg PO DAILY@0600 [facility] Last Admin: 03/28/22 05:35 Dose: 50 mcg Documented by: LEANDRA Losartan Potassium (Losartan Potassium 50 Mg Tablet) 50 mg PO DAILY [facility]; Protocol Last Admin: 03/28/22 08:20 Dose: 50 mg Documented by: BERTHA Metoprolol Succinate (Metoprolol Succinate Er 50 Mg Tab.Er.24h) 50 mg PO DAILY [facility]; Protocol Last Admin: 03/28/22 08:20 Dose: 50 mg Documented by: BERTHA Ondansetron HCl (Ondansetron Hcl 4 Mg/2 Ml Vial) 4 mg IVPUSH Q8H PRN PRN Reason: Nausea and Vomiting Pharmacy Consult (Consult Rx Perform Med Rec) 1 each MISCELLANE ONCE PRN PRN Reason: Consult order Sodium Chloride (0.9 % Sodium Chloride Flush 3 Ml Syringe) 3 ml IVFLUSH QSHIFT [facility] Last Admin: 03/28/22 08:19 Dose: 3 ml Documented by: BERTHA Labs CBC & Chem 7: 03/28/22 06:02 03/28/22 06:02 Labs: Laboratory Results - last 24 hr 03/27/22 03/28/22 03/28/22 21:53 06:02 06:02 MCV 89.8 MCH 27.9 MCHC 31.0 RDW 18.3 H Plt Count 210 MPV 10.3 Absolute Nucleated RBC 0.000 Nucleated RBC % (auto) 0.0 Anion Gap 17 Estim Creat Clear Calc 57.0 Estimated GFR 44 POC Glucose 135 H Random Glucose 121 H Calcium 9.6 B-Natriuretic Peptide Free T4 0.94 03/28/22 03/28/22 03/28/22 06:02 07:15 10:56 MCV MCH MCHC RDW Plt Count MPV Absolute Nucleated RBC Nucleated RBC % (auto) Anion Gap Estim Creat Clear Calc Estimated GFR POC Glucose 98 105 Random Glucose Calcium B-Natriuretic Peptide 887 H Free T4 Microbiology Microbiology Results: Microbiology 03/27/22 07:37 Blood Culture - Preliminary Blood - Venous No growth after 24 hours. 03/27/22 07:22 Blood Culture - Preliminary Blood - Venous Prelim: GPC Gram Stain only Assessment and Plan (1) Pleural effusion: Status: Acute (2) Diabetes mellitus: Status: Acute (3) Atrial fibrillation: Status: Acute (4) Pneumonia: Status: Acute Plan A 71 years old lady with PMH of atrial fibrillation, diabetes, HTN who presents to the hospital after unwitnessed fall at home. Fall Secondary to physical deconditioning and likely pneumonia CT head and neck negative for any acute injury to do physical therapy Pneumonia Likely secondary to fluid overload Cover with IV antibiotics of azithromycin and ceftriaxone pending blood cultures Pleural effusion Evidence of bilateral more on right pleural effusion on CT scan with no masses or lymphadenopathy suggestive of CHF picutre consider thoracentesis if other concerns pending echo AFib Rate controlled, continue home medications Type 2 diabetes SSI next Lyme diabetic diet DVT PPX Eliquis The patient will need overnight hospital stay for treatment of pleural effusion, pneumonia pending ECHO and PT eval for safe placement plan. Quality Stroke Does the patient have a stroke diagnosis?: No VTE Prior VTE?: No VTE Risk Level:: Medical - moderate - high VTE Device Contraindication: Treatment Not Indicated VTE Drug Contraindication: N/A - Med Ordered
--- NOTE | 2022-03-28 14:41 | MHC.CM.PN ---
Addendum entered by Christa Begum 03/29/22 11:42: CM RECEIVED A CALL FROM PTS FRIEND, SREE, WHO REPORTS THE PT TOLD HER SHE WOULD BE GETTING A CALL FROM CM YESTERDAY. CM INFORMED HER THIS WAS NOT WHAT WAS DISCUSSED. CM EXPLAINED THE PT DID NOT HAVE HER PHONE NUMBER AND HAD INDICATED SHE WOULD OBTAIN IT TODAY SO THAT A HCP COULD BE COMPLETED. PHONE NUMBERS PROVIDED: CELL: [phone] WORK: [phone] Original Note: PT REPORTS SHE LIVES ALONE AND IS INDEPENDENT WITH CARE PT REPORTS SHE HAS NO DME AND NO HOME SERVICES PT REPORTS [facility] IS HER PCP SHE REPORTS SHE DID HAVE A HCP BUT DOES NOT KNOW WHERE IT IS SHE IS INTERESTED IN COMPLETING A NEW ONE BUT WANTS TO SPEAK TO HER FRIEND TOMORROW SHE SAYS SHE WILL COMPLETE ONE TOMORROW OR PRIOR TO DC PT REPORTS SHE IS VACCINATED WITH PFIZER X 3 PT REPORTS SHE WOULD LIKE TO NAME HER FRIENDS, 1. EDUAR LEON [phone] 2. SREE WEBSTER (# UNKNOWN) HER AGENTS AND WILL GET SREE'S NUMBER TOMORROW. CURRENT DC PLAN IS HOME WITH NO SERVICES FRIENDS TO TRANSPORT IMM DELIVERED
[2022-03-28 15:09] VITALS: BP 93/52; PULSE 49; RESP 20; TEMP 36.7; O2SAT 94
[2022-03-28 15:47] LABS: Glucose, Whole Blood 93 mg/dL (60-115)
[2022-03-28 19:13] VITALS: BP 107/53; PULSE 80; RESP 20; TEMP 36.3; O2SAT 94
[2022-03-28 19:52] LABS: Glucose, Whole Blood 76 mg/dL (60-115)
[2022-03-28 23:19] VITALS: BP 129/54; PULSE 60; RESP 18; TEMP 36.1; O2SAT 94
[2022-03-29] VITALS (7 sets, daily range): BP systolic 99–138; BP diastolic 49–72; PULSE 50–74; RESP 18–20; TEMP 36–36.7; O2SAT 90–98
[2022-03-29] MEDS: Levothyroxine Sodium 50 MCG TABLET PO (06:12)
--- NOTE | 2022-03-29 07:00 | CA_ITS ---
Transthoracic Echocardiogram Patient (Last, First, Middle): Shyla Don, Gender: Female Date of : 1950 Age: 71 Procedure Date: 03/29/2022 Procedure Type: Transthoracic Echocardiogram Location: [facility] [place] Height: 172.72 cm Weight: 120.2 kg BSA: 2.30 m2 Heart Rate: bpm BP: 120 / 59 mmHg Head Of Product: JOSE A Referring MD: Denise Connors MD Inserter Operator: Sameer Montemayor MD Symptoms: Pleural effusion, elevated BNP Study Quality: Fair Conclusions: - 1. Normal LV systolic function with grade 2 diastolic dysfunction 2. Severe mitral calcification with normal cardiac valvular Doppler 3. Eidk-al-yisfhxsk elevation of right ventricular systolic pressure with significant elevation of right atrial pressures 4. No gross pericardial effusion Findings Left Ventricle Normal left ventricular size, thickness, and systolic function. The visually estimated ejection fraction is between 60-65%. Spectral Doppler is indicative of a pseudonormal filling pattern. E/E prime ratio is >15, consistent with elevated filling pressures. Evidence suggests grade II (moderate) diastolic dysfunction. Right Ventricle Normal right ventricular cavity size and systolic function. Atria The left atrium is likely dilated. Interatrial shunt cannot be excluded. The right atrium was not well visualized. Aortic Valve There is mild calcification of the aortic valve. There is no aortic valve stenosis. There is no aortic valve regurgitation. Mitral Valve There is mild anterior and severe posterior mitral leaflet thickening. There is severe mitral annular calcification. There is trace mitral valve regurgitation. There is no mitral valve stenosis. Pulmonic Valve The pulmonic valve was not well visualized. Tricuspid Valve Normal tricuspid valve structure. Significantly elevated right atrial pressure. Mild to moderate pulmonary hypertension is present. Great Vessels All visible segments of the aorta are normal in size. The pulmonary artery was not well visualized. Venous The inferior vena cava is moderately dilated and does not collapse with inspiration. Pericardium/Pleural There is no evidence of pericardial effusion. Prior Study Comparison No prior study available for comparison. Measurements 2D Linear Measurements IVSd: 0.88 0.6-0.9/0.6-1.0 cm LVIDd: 4.30 3.9-5.3/4.2-5.9 cm LVIDd Index: 1.87 2.4-3.2/2.2-3.1 cm/m2 LVIDs: 2.46 2.0-3.6 cm LVPWd: 0.82 0.7-1.1 cm LA Diam: 3.80 2.7-3.8/3.0-4.0 cm LAIDs Index: 1.65 1.5-2.3 cm/m2 LV Mass: 142.63 67-162/88-224 g LV Mass Index: 62.01 43-95/49-115 g/m2 LVOT Diam: 1.90 3.0+(-)1.3 cm 2D Systolic Function EF 4C: 63.50 >55% EF 2C: 61.80 >55% EF BiP: 63.00 >55% Mitral Valve MV Pk E: 1.40 MV PK A: 0.59 MV Decel Time: 222.00 E/A: 2.40 E'Lateral: 9.57 E'Medial: 6.42 E/E' Med: 21.80 E/E' Lat: 14.60 PHT: 65.00 MVA PHT: 3.38 Decel [place]: 6.31 Aortic Valve AoV Pk Yfn: 1.37 AoV Mn Yfn: 1.01 AoV VTI: 0.36 AoV Pk Grad: 8.00 Aov Mn Grad: 4.00 CAREY Cont.VTI: 2.00 LVOT LVOT Pk Yfn: 1.08 LVOT Mn Yfn: 0.72 LVOT VTI: 0.25 LVOT Pk Grad: 5.00 LVOT Mn Grad: 2.00 LVOT Diam: 1.90 LVOT Area: 2.84 Diastolic Function MV Pk E: 1.40 MV Pk A: 0.59 E/A: 2.40 E'Medial: 6.42 E/E' Med: 21.80 E' Laterial: 9.57 E/E' Lat: 14.60 Right Ventricle TAPSE (mm): 19.90 TVS' Yfn: 11.90 Tricuspid Valve TR Pk Yfn: 2.85 TR Pk Grad: 32.00 RA Press: 15.00 RVSP: 47.00 Great Vessels Aorta Sinus of Valsalva: 2.92 2.0-3.[address] [place]: 2.53 1.7-3.4 cm Ao Asc: 3.10 2.1-3.4 cm Updated in Other Vendor System with Status of Final Sameer Montemayor MD electronically signed on 03/29/2022 5:36:59 PM with status of Final
[2022-03-29 07:06] LABS: Hemoglobin 11.5 g/dl (12.0-16.0); Mean Corpuscular HGB Conc 31.1 g/dl (31.0-35.0); Mean Corpuscular Hemoglobin 27.6 pg (27.0-33.0); Mean Corpuscular Volume 88.7 fL (80.0-98.0); Mean Platelet Volume 10.7 fL (9.4-12.3); Platelet Count 218 X10*3/uL (160-400); Red Blood Count 4.17 X10*6/uL (4.20-5.50); Red Cell Distribution Width 18.4 % (11.0-16.0); White Blood Count 5.8 X10*3/uL (4.8-10.8)
[2022-03-29 07:20] LABS: Anion Gap 16 (12-20); Blood Urea Nitrogen 19 mg/dL (9-16); Calcium 9.2 mg/dL (8.4-10.2); Carbon Dioxide 25 mmol/L (22-29); Chloride 108 mmol/L (96-108); Creatinine Clr Calc Pharmacy 66.3; Estimated Glomerular Filt Rate 53; Glucose Random 91 mg/dL (60-115); Potassium 3.7 mmol/L (3.3-5.1); Sodium 145 mmol/L (135-145)
[2022-03-29 07:24] LABS: B Type Natriuretic Peptide 489 pg/mL (<100)
[2022-03-29 07:56] LABS: Glucose, Whole Blood 85 mg/dL (60-115)
[2022-03-29] MEDS: cefTRIAXone sodium 1 GM in 0.9 % Sodium Chloride 50 ML IV (08:23)
[2022-03-29] MEDS: 0.9 % Sodium Chloride Flush 3 ML SYRINGE IVFLUSH ×3 (08:23→21:38)
[2022-03-29] MEDS: Ammonium Lactate 12 % Lotion 226 GM BOTTLE 1 APPL TOPICAL ×2 (08:24→21:50)
[2022-03-29] MEDS: Metoprolol Succinate ER 50 MG TAB.ER.24H PO (08:24)
[2022-03-29] MEDS: Apixaban 5 MG TABLET PO ×2 (08:24→21:37)
[2022-03-29] MEDS: Nystatin Powder 15 GM BOTTLE 1 APPL TOPICAL ×3 (08:24→21:50)
[2022-03-29] MEDS: Furosemide 20 MG/2 ML VIAL IVPUSH (08:24)
[2022-03-29] MEDS: Losartan Potassium 50 MG TABLET PO (08:25)
[2022-03-29] MEDS: FLUoxetine HCl 20 MG CAPSULE 40 MG PO (08:25)
--- NOTE | 2022-03-29 10:45 | P.CDIC_ITS ---
CDI Concurrent Query Documentation Clarification: PHYSICIAN'S DOCUMENTATION REQUEST Date of Query: 03/29/22 1045 Patient Name: Shyla Don Admit Date: 03/27/22 Dear Doctor, A review of the medical record indicates additional documentation may be needed. Please review below and update the documentation accordingly. Clinical Indicators: Height: [] 5'8 Weight: [] 120.202 kg BMI: [] 40.3 Other Clinical Notes Supporting Significance of the BMI: Risk Factors/Clinical Indicators/Treatments If possible, please provide an associated diagnosis related to the abnormal BMI, such as: For a BMI >= 40: * Overweight * Obesity * Due to excess calories * Drug induced * Due to other cause * Severe or Morbid Obesity * With alveolar hypoventilation * Without alveolar hypoventilation Or: * BMI is not significant * Other (please specify) * Unable to determine Use of terms such as suspected, likely, concern for, or probable (associated with a specific diagnosis that is being evaluated, monitored, or treated as if it exists) are acceptable and can be coded in the inpatient setting, when documented at the time of discharge. Thank you, Maia Spain RN Extension: [phone] Please use your independent medical judgment in providing your response. THIS QUERY IS PART OF THE PERMANENT MEDICAL RECORD Provider Response: Morbid Obesity
[2022-03-29 11:44] LABS: Glucose, Whole Blood 124 mg/dL (60-115)
[2022-03-29] MEDS: Azithromycin 500 MG in 0.9 % Sodium Chloride 250 ML 125 MG IV (12:38)
--- NOTE | 2022-03-29 13:15 | MHC.CM.PN ---
CM received a call from Patient's Friend/Tiffanie @ [phone] or [phone], who informed CM that Patient's home environment is a hoarding situation. CM also received a call from Sonal at [id number], who should be informed of final dc plan. PT is recommending STR and referrals will be made. CM will follow.
--- NOTE | 2022-03-29 13:41 | HO.PM.IMPN ---
Subjective Subjective Date of Service: 03/29/22 Interval History: seen and evaluated feels mild improvement of her breathing and weakness tempretures stabilized normal Review of Systems No fever, chills but reporting generalized weakness No chest pain, palpitation Having shortness of breath and episodes of cough No abdominal pain, nausea or vomiting No urinary symptoms No any rash or wounds Feels her mind is little bit off Physical Exam Vital Signs: Vital Signs: Last Vital Signs Temp 97.5 F 03/29/22 10:59 Pulse 53 03/29/22 10:59 Resp 18 03/29/22 10:59 BP 99/49 L 03/29/22 10:59 Pulse Ox 93 03/29/22 10:59 Oxygen Flow Rate 4 03/27/22 05:47 BMI result Body Mass Index 40.3 Const: Other: Constitutional : Alert, interactive, slow in responses but not in distress Neck : Normal inspection, Supple Cardiovascular : RRR, no JVP, trace bilateral lower extremity edema Respiratory : Decreased air entry over the right lower area, fine crackles, wheezes or rhonchi Gastrointestinal: soft, lax, Normal bowel sounds, Non tender Skin : Warm, Dry, bilateral skin changes suggestive of stasis dermatitis Neurological : Alert & oriented x3, No focal deficit , CN 2-12 within normal Objective Data Active Medications Acetaminophen (Acetaminophen 325 Mg Tablet) 650 mg PO Q6H PRN PRN Reason: Pain, Mild (Pain Scale 1-3) Apixaban (Apixaban 5 Mg Tablet) 5 mg PO BID [facility] Last Admin: 03/29/22 08:24 Dose: 5 mg Documented by: BERTHA Benzonatate (Benzonatate 100 Mg Capsule) 100 mg PO TID PRN PRN Reason: Cough Fluoxetine HCl (Fluoxetine Hcl 20 Mg Capsule) 40 mg PO DAILY [facility] Last Admin: 03/29/22 08:25 Dose: 40 mg Documented by: BERTHA Furosemide (Furosemide 20 Mg/2 Ml Vial) 20 mg IVPUSH DAILY [facility]; Protocol Last Admin: 03/29/22 08:24 Dose: 20 mg Documented by: BERTHA Azithromycin 500 mg/ Sodium (Chloride) 250 mls @ 125 mls/hr IV Q24H [facility] Last Admin: 03/29/22 12:38 Dose: 125 mls/hr Documented by: BERTHA Ceftriaxone Sodium 1 gm/ (Sodium Chloride) 50 mls @ 100 mls/hr IV Q24H [facility] Last Infusion: 03/29/22 10:06 Dose: 0 mls/hr Documented by: BERTHA Insulin Human Lispro (Insulin Lispro 100 Unit/Ml 3 Ml Vial) 0 unit SUBCUT QIDACHS [facility]; Protocol Last Admin: 03/29/22 11:27 Dose: Not Given Documented by: BERTHA Non-Admin Reason: No Insulin Coverage Lactic Acid (Ammonium Lactate 12 % Lotion 226 Gm Bottle) 1 appl TOPICAL BID [facility]; Protocol Last Admin: 03/29/22 08:24 Dose: 1 appl Documented by: BERTHA Levothyroxine Sodium (Levothyroxine Sodium 50 Mcg Tablet) 50 mcg PO DAILY@0600 [facility] Last Admin: 03/29/22 06:12 Dose: 50 mcg Documented by: GREGG Losartan Potassium (Losartan Potassium 50 Mg Tablet) 50 mg PO DAILY [facility]; Protocol Last Admin: 03/29/22 08:25 Dose: 50 mg Documented by: BERTHA Metoprolol Succinate (Metoprolol Succinate Er 50 Mg Tab.Er.24h) 50 mg PO DAILY [facility]; Protocol Last Admin: 03/29/22 08:24 Dose: 50 mg Documented by: BERTHA Nystatin (Nystatin Powder 15 Gm Bottle) 1 appl TOPICAL TID [facility]; Protocol Last Admin: 03/29/22 08:24 Dose: 1 appl Documented by: BERTHA Ondansetron HCl (Ondansetron Hcl 4 Mg/2 Ml Vial) 4 mg IVPUSH Q8H PRN PRN Reason: Nausea and Vomiting Pharmacy Consult (Consult Rx Perform Med Rec) 1 each MISCELLANE ONCE PRN PRN Reason: Consult order Sodium Chloride (0.9 % Sodium Chloride Flush 3 Ml Syringe) 3 ml IVFLUSH QSHIFT [facility] Last Admin: 03/29/22 08:23 Dose: 3 ml Documented by: BERTHA Labs CBC & Chem 7: 03/29/22 06:11 03/29/22 06:11 Labs: Laboratory Results - last 24 hr 03/28/22 03/28/22 03/29/22 15:40 19:45 06:11 MCV 88.7 MCH 27.6 MCHC 31.1 RDW 18.4 H Plt Count 218 MPV 10.7 Absolute Nucleated RBC 0.000 Nucleated RBC % (auto) 0.0 Anion Gap Estim Creat Clear Calc Estimated GFR POC Glucose 93 76 Random Glucose Calcium B-Natriuretic Peptide 03/29/22 03/29/22 03/29/22 06:11 06:11 07:10 MCV MCH MCHC RDW Plt Count MPV Absolute Nucleated RBC Nucleated RBC % (auto) Anion Gap 16 Estim Creat Clear Calc 66.3 Estimated GFR 53 POC Glucose 85 Random Glucose 91 Calcium 9.2 B-Natriuretic Peptide 489 H 03/29/22 11:02 MCV MCH MCHC RDW Plt Count MPV Absolute Nucleated RBC Nucleated RBC % (auto) Anion Gap Estim Creat Clear Calc Estimated GFR POC Glucose 124 H Random Glucose Calcium B-Natriuretic Peptide Microbiology Microbiology Results: Microbiology 03/27/22 07:37 Blood Culture - Preliminary Blood - Venous No growth after 48 hours. 03/27/22 07:22 Blood Culture - Final Blood - Venous Coag negative Staphylococcus Assessment and Plan (1) Pleural effusion: Status: Acute (2) Atrial fibrillation: Status: Acute (3) Pneumonia: Status: Acute (4) Morbid obesity: Status: Acute Plan A 71 years old lady with PMH of atrial fibrillation, diabetes, HTN who presents to the hospital after unwitnessed fall at home. Fall Secondary to physical deconditioning and likely pneumonia CT head and neck negative for any acute injury PT recommended SNF placement Pneumonia Likely secondary to fluid overload and atelactasis Continue azithromycin and ceftriaxone Negative blood cultures Pleural effusion Evidence of bilateral more on right pleural effusion on CT scan with no masses or lymphadenopathy suggestive of CHF picutre consider thoracentesis if other concerns pending echo Morbid obesity 2/2 calorie intake advised to lose weight AFib Rate controlled, continue home medications Type 2 diabetes SSI diabetic diet DVT PPX Bria Reported the patient is a hoarder and her home situation is not livable at this point by her friend Tiffanie. They are seeking long-term placement for her. The patient will need overnight hospital stay for treatment of pleural effusion, pneumonia pending ECHO for safe placement plan. Quality Stroke Does the patient have a stroke diagnosis?: No VTE Prior VTE?: No VTE Risk Level:: Medical - moderate - high VTE Device Contraindication: Treatment Not Indicated VTE Drug Contraindication: N/A - Med Ordered
[2022-03-29 15:45] LABS: Glucose, Whole Blood 132 mg/dL (60-115)
[2022-03-29 19:52] LABS: Glucose, Whole Blood 151 mg/dL (60-115)
[2022-03-29] MEDS: Insulin Lispro 100 UNIT/ML 3 ML VIAL SUBCUT (21:37)
[2022-03-30] VITALS (7 sets, daily range): BP systolic 102–141; BP diastolic 56–72; PULSE 51–78; RESP 19–21; TEMP 36.1–36.7; O2SAT 95–98
[2022-03-30] MEDS: Levothyroxine Sodium 50 MCG TABLET PO (05:34)
[2022-03-30 07:14] LABS: Glucose, Whole Blood 98 mg/dL (60-115)
[2022-03-30] MEDS: cefTRIAXone sodium 1 GM in 0.9 % Sodium Chloride 50 ML IV (07:58)
[2022-03-30] MEDS: Nystatin Powder 15 GM BOTTLE 1 APPL TOPICAL ×3 (07:58→20:42)
[2022-03-30] MEDS: Ammonium Lactate 12 % Lotion 226 GM BOTTLE 1 APPL TOPICAL ×2 (07:58→20:42)
[2022-03-30] MEDS: 0.9 % Sodium Chloride Flush 3 ML SYRINGE IVFLUSH ×2 (07:58→15:14)
[2022-03-30] MEDS: Metoprolol Succinate ER 50 MG TAB.ER.24H PO (07:59)
[2022-03-30] MEDS: FLUoxetine HCl 20 MG CAPSULE 40 MG PO (07:59)
[2022-03-30] MEDS: Apixaban 5 MG TABLET PO ×2 (07:59→20:36)
[2022-03-30] MEDS: Furosemide 40 MG/4 ML VIAL IVPUSH (07:59)
[2022-03-30 08:21] LABS: B Type Natriuretic Peptide 537 pg/mL (<100)
[2022-03-30 08:42] LABS: Anion Gap 13 (12-20); Blood Urea Nitrogen 22 mg/dL (9-16); Carbon Dioxide 28 mmol/L (22-29); Chloride 107 mmol/L (96-108); Creatinine Clr Calc Pharmacy 64.4; Estimated Glomerular Filt Rate 51; Glucose Random 110 mg/dL (60-115); Potassium 3.3 mmol/L (3.3-5.1); Sodium 145 mmol/L (135-145)
[2022-03-30 11:21] LABS: Glucose, Whole Blood 163 mg/dL (60-115)
[2022-03-30] MEDS: Insulin Lispro 100 UNIT/ML 3 ML VIAL SUBCUT (11:25)
[2022-03-30] MEDS: Azithromycin 500 MG in 0.9 % Sodium Chloride 250 ML 125 MG IV (11:47)
--- NOTE | 2022-03-30 13:55 | P.DS_ITS ---
DS: Providers Provider Date of Service: 03/30/22 Date of admission: 03/27/22 13:55 Primary care physician: Adi Toscano MD DS: Diagnosis Discharge Diagnosis (1) Pleural effusion: Status: Acute (2) Atrial fibrillation: Status: Acute (3) Pneumonia: Status: Acute (4) Morbid obesity: Status: Acute (5) Diastolic CHF, acute on chronic: Status: Acute DS: Summary Hospital Course Hospital Course: Admission note HPI A 71 years old lady with PMH of atrial fibrillation, diabetes, HTN who presents to the hospital after unwitnessed fall at home.? The patient cannot remember all the details but she felt dizzy and fell on the floor try to call multiple friends but she felt and they felt that she was little bit of and confused.? EMS was called and they brought her to the hospital.? She reports that for the last few days she has been feeling sick and not eating very well but the eating problem goes back to earlier this year.? She denies any abdominal pain, chest pain, nausea or vomiting or change in bowel habit.? She denies any urinary symptoms.? In the emergency a CT scan was consistent with fluid overload and possible pneumonia.? Admitted for further evaluation and treatment. Hospital course Patient was admitted to the hospital for evaluation of unwitnessed fall at home. CT head and neck were negative for any acute injury but chest x-ray was concerning for evidence of bilateral pleural effusion more noticed on the right side with no associated masses or lymphadenopathy suggestive of heart failure picture with associated atelectasis concerning for pneumonia. Patient was treated with IV Lasix with fair response as she was off the oxygen and able to ambulate with physical therapy who recommended short-term physical rehab. Echo was done showing ejection fraction of 60 65% with evidence of elevated filling pressures suggestive of moderate diastolic dysfunction. Treated with IV antibiotic of azithromycin and ceftriaxone as blood cultures remain negative. The patient living conditions seems to be concerning for her surrounding friends who are seeking long-term placement for her as she has hoarding behavior and unsafe home environment at this point. Start furosemide 40 mg daily Continue azithromycin and Ceftin for 4 more days Continue physical therapy To follow up with Cardiology as outpatient To repeat blood work next week Time Spent with Patient Time attestation: Total time spent providing and/or coordinating discharge services: Discharge coordination time: Greater than 30 minutes Quality: Safe Use of Opioids Does Pt have an Active Cancer Diagnosis on the Problem List?: No Quality: Stroke Does the patient have a stroke diagnosis?: No Physical Exam Vital Signs: Vital Signs: Last Vital Signs Temp 96.9 F 03/30/22 11:01 Pulse 52 03/30/22 11:01 Resp 20 03/30/22 11:01 BP 106/56 L 03/30/22 11:01 Pulse Ox 96 03/30/22 11:01 Oxygen Flow Rate 4 03/27/22 05:47 BMI result Body Mass Index 40.3 Const: Other: Constitutional : Alert, interactive, slow in responses but not in distress Neck : Normal inspection, Supple Cardiovascular : RRR, no JVP, trace bilateral lower extremity edema Respiratory : Decreased air entry over the right lower area, no crackles, wheezes or rhonchi Gastrointestinal: soft, lax, Normal bowel sounds, Non tender Skin : Warm, Dry, bilateral skin changes suggestive of stasis dermatitis Neurological : Alert & oriented x3, No focal deficit , CN 2-12 within normal DS: Data Data Completed and Pending Labs on day of discharge: Laboratory Results - last 24 hr 03/29/22 03/29/22 03/30/22 15:38 19:43 07:06 Sodium Potassium Chloride Carbon Dioxide Anion Gap BUN Creatinine Estim Creat Clear Calc Estimated GFR POC Glucose 132 H 151 H 98 Random Glucose Calcium B-Natriuretic Peptide 03/30/22 03/30/22 03/30/22 07:41 07:41 11:14 Sodium 145 Potassium 3.3 Chloride 107 Carbon Dioxide 28 Anion Gap 13 BUN 22 H Creatinine 1.06 Estim Creat Clear Calc 64.4 Estimated GFR 51 POC Glucose 163 H Random Glucose 110 Calcium 9.0 B-Natriuretic Peptide 537 H Preliminary micro results at discharge 03/27/22 07:22 Blood Culture - Preliminary Blood - Venous Coag negative Staphylococcus 03/27/22 07:37 Blood Culture - Preliminary Blood - Venous No growth after 48 hours. Discharge Plan Discharge Patient Disposition: [facility] Discharge Diagnosis: Heart failure exacerbation Pneumonia Pleural effusion with atelectasis Referrals: Adi Toscano MD [Primary Care Provider] - 1 Week Discharge Medications: New ammonium lactate 12 % Lotion 1 appl topical BID 7 Days 0RF Protocol: Apply to: Apply to: Lower extremities bilaterally nystatin 100,000 unit/gram Powder 1 appl topical TID 7 Days 0RF Protocol: Apply to: Apply to: groin furosemide 40 mg tablet 40 mg PO QAM Qty: 30 0RF azithromycin 500 mg tablet 500 mg PO DAILY 4 Days Qty: 4 0RF cefuroxime axetil 500 mg tablet 500 mg PO BID Qty: 8 0RF Continued fluoxetine 40 mg capsule 1 cap PO DAILY 0RF metoprolol succinate 50 mg tablet extended release 24 hr 50 mg PO DAILY 0RF meloxicam 15 mg tablet 1 tab PO DAILY PRN (Reason: moderate pain) 0RF levothyroxine 50 mcg tablet 1 tab PO DAILY 0RF simvastatin 20 mg tablet 1 tab PO BEDTIME 0RF losartan 100 mg tablet 1 tab PO DAILY 0RF glipizide 5 mg tablet 1 tab PO BID 0RF Eliquis 5 mg tablet 1 tab PO BID 0RF Discharge Orders: Discharge Order (Routine); Ordered 03/30/22 Ordered By: Denise Connors Diet: low salt diet Activity on Discharge: As tolerated Stand Alone Forms: Patient Portal Discharge page Other Ambulatory Orders: Basic Metabolic Panel (Routine) Timeframe: 1 Week Facility: [facility] - Location: Laboratory Ordered By: Denise Connors Care Plan Goals: Read below Health Concerns: Read below Plan of Treatment: Read below Assessment: You were admitted to the hospital for evaluation of increased weakness and difficulty breathing. Images were consistent with right-sided effusion in your lung causing collapse of part of your lung and pneumonia. You were treated with IV antibiotics and IV Lasix with good response over the course of hospital stay as you were weaned off the oxygen and had physical therapy evaluation who recommended short-term rehab placement. Start furosemide 40 mg daily Continue azithromycin and Ceftin for 4 more days Continue physical therapy To follow up with Cardiology as outpatient To repeat blood work next week
[2022-03-30 14:46] LABS: COVID-19 Test Negative (Negative); IDNOW Serial# 9DB6401D
[2022-03-30 16:04] LABS: Glucose, Whole Blood 112 mg/dL (60-115)
[2022-03-30 19:51] LABS: Glucose, Whole Blood 118 mg/dL (60-115)
--- NOTE | 2022-03-31 01:38 | PC.NURSE ---
Addendum entered by Juan Diego Samayoa RN 03/31/22 02:19: [facility] phone #[phone] Original Note: Patient was scheduled to be discharged to [facility] overnight. However, discharged kept being delayed due to transportation. This RN spoke with RHONDA Sanchez at [facility] who stated his mixing supervisor is requesting the discharged be rescheduled for the morning. This RN spoke with [facility] mixing supervisor who agreed. This RN updated [facility] and the patient on the current plan.
[2022-03-31 03:08] VITALS: BP 141/65; PULSE 51; RESP 20; TEMP 36.1; O2SAT 98
[2022-03-31] MEDS: Levothyroxine Sodium 50 MCG TABLET PO (05:40)
[2022-03-31 07:50] VITALS: BP 139/79; PULSE 50; RESP 16; TEMP 36.1; O2SAT 96
[2022-03-31 07:52] LABS: Glucose, Whole Blood 108 mg/dL (60-115)
[2022-03-31] MEDS: Metoprolol Succinate ER 50 MG TAB.ER.24H PO (08:44)
[2022-03-31] MEDS: Apixaban 5 MG TABLET PO (08:44)
[2022-03-31] MEDS: FLUoxetine HCl 20 MG CAPSULE 40 MG PO (08:44)
[2022-03-31] MEDS: 0.9 % Sodium Chloride Flush 3 ML SYRINGE IVFLUSH (08:45)
[2022-03-31] MEDS: Ammonium Lactate 12 % Lotion 226 GM BOTTLE 1 APPL TOPICAL (08:45)
[2022-03-31] MEDS: Nystatin Powder 15 GM BOTTLE 1 APPL TOPICAL (08:45)
[2022-03-31] MEDS: Azithromycin 500 MG TABLET PO (09:05)
[2022-03-31] MEDS: Furosemide 40 MG TABLET PO (09:05)
--- NOTE | 2022-03-31 11:54 | MHC.CM.PN ---
IMM 03/30/22 Female 71 is discharged to [facility] today via S.
== END 2022-03-31 11:34 | disposition skilled nursing facility (03) | DRG 193 ==
LOC: HO.ED 12:43 → HO.EDOVER 14:10 → HO.IMC 16:05
PROVIDERS: Admitting Provider Student in an Organized Health Care Education/Training Program; Emergency Provider Emergency Medicine Emergency Medical Services; PCP Family Medicine; Visit Provider Student in an Organized Health Care Education/Training Program
DX: J18.9 Pneumonia, unspecified organism (principal); I50.33 Acute on chronic diastolic (congestive) heart failure; Z68.41 Body mass index [BMI] 40.0-44.9, adult; J98.11 Atelectasis; E66.01 Morbid (severe) obesity due to excess calories; I48.91 Unspecified atrial fibrillation; Z20.822 Contact with and (suspected) exposure to COVID-19; Z88.8 Allergy status to other drugs, medicaments and biological substances; Z79.84 Long term (current) use of oral hypoglycemic drugs; Z79.01 Long term (current) use of anticoagulants; Z79.899 Other long term (current) drug therapy
CPT/HCPCS: 0241U; 36415; 70450; 71045; 71275; 72125; 80048; 80076; 81001; 82550; 82947; 83605; 83735; 83880; 84439; 84443; 84484; 85025; 85027; 87040; 87147; 87205; 87635; 93005; 93306; 96361; 96365; 96375; 97116; 97162; 97530; 99284; 99291; C1758; J0456; J0696; J1100; J1940; Q9967